=== PATIENT | female | born 1940 | race Caucasian/White ===

== ENCOUNTER 2021-02-05 01:16 | Emergency (ER) | payer OTHER, MEDICARE ==
[2021-02-05 01:45] VITALS: BP 130/67; PULSE 60; TEMP 98.1; BMI 26.3
[2021-02-05] MEDS ORDERED: ACETAMINOPHEN 1000 MG/100 ML VIAL IVPB ONE (01:55)
[2021-02-05] MEDS ORDERED: fentaNYL CITRATE 250 MCG/5 ML VIAL ONE (02:38)
[2021-02-05] MEDS ORDERED: ACETAMINOPHEN INJECTION 100 ML IVPB ONE (02:39)
[2021-02-05 03:12] LABS: BASO % 0.6 % (0-2.0); EOS % 2.1 % (0-4.5); HEMATOCRIT 41.3 % (32.4-45.2); HEMOGLOBIN 13.9 GM/dL (10.7-15.3); LYMPH % 26.5 % (8-40); MCH 33.3 pg (25.7-33.7); MCHC 33.7 g/dl (32.0-36.0); MEAN CELL VOLUME 98.8 fl (80-96); MONO % 6.8 % (3.8-10.2); PLATELET COUNT 252 10^3/uL (134-434); RBC 4.18 M/mm3 (3.60-5.2); RDW 13.8 % (11.6-15.6); WHITE BLOOD COUNT 7.4 K/mm3 (4.0-10.0)
[2021-02-05 03:33] LABS: CHLORIDE 108 mmol/L (98-107); SODIUM 143 mmol/L (136-145)
[2021-02-05 03:35] LABS: ALBUMIN 3.6 g/dl (3.4-5.0); ANION GAP 8 MMOL/L (8-16); BLOOD UREA NITROGEN 13.8 mg/dL (7-18); CALCIUM 8.8 mg/dL (8.5-10.1); CO2 27 mmol/L (21-32); MAGNESIUM 2.1 mg/dL (1.8-2.4)
[2021-02-05 03:38] LABS: CREATININE 0.6 mg/dL (0.55-1.3); SGOT/AST 24 U/L (15-37); SGPT/ALT 19 U/L (13-61)
[2021-02-05 03:39] LABS: TOT PROT 6.9 g/dl (6.4-8.2)
[2021-02-05 03:40] LABS: BILIRUBIN,TOTAL 0.2 mg/dL (0.2-1)
[2021-02-05 03:41] LABS: ALK PHOS 81 U/L (45-117)
[2021-02-05 04:21] LABS: GLUCOSE,RANDOM 101 mg/dL (74-106)
== END 2021-02-05 05:35 | disposition home or self-care (01) ==
LOC: JER 01:16
PROC: 3E033GC Introduction of Other Therapeutic Substance into Peripheral Vein, Percutaneous Approach (ICD-10-PCS; principal; 2021-02-05)
DX: S42.301A Unspecified fracture of shaft of humerus, right arm, initial encounter for closed fracture (principal); W07.XXXA Fall from chair, initial encounter
CPT/HCPCS: 36415; 70450-TC; 71045-TC-FY; 72125-TC; 73030-TC-RT-FY; 80053; 82550; 83735; 84484; 85025; 93005; 93010; 99285-25; C9803; J0131; U0003; U0005